=== PATIENT | female | born 1945 | race Caucasian/White ===

== ENCOUNTER → 2021-08-09 | Outpatient (CLI) | payer MEDICARE ==
--- NOTE | 2021-08-12 12:41 | RAD ---
EXAM: XR FOOT_LEFT 3 VIEWS 08/09/2021 3:30 PM CLINICAL INDICATION: Foot pain COMPARISON: None TECHNIQUE: AP, oblique, and lateral views of the weightbearing FINDINGS: There is a minimally displaced, acute oblique fracture of the fifth metatarsal shaft and ne ck. No other fracture or malalignment. 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 Th ere are small plantar and posterior calcaneal enthesophytes. No focal soft tissue abnormality. IMPRESSION: 1. Acute minimally displaced fifth metatarsal fracture. 2. 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 3. Calcaneal enthesophytes. Electronically signed by: Katty Todd MD (08/12/2021 12:39 PM) [id number]
== END ==
LOC: RAD 15:00
PROVIDERS: ATTEND Podiatrist
DX: S92.352A Displaced fracture of fifth metatarsal bone, left foot, initial encounter for closed fracture (principal); M19.072 Primary osteoarthritis, left ankle and foot; M77.32 Calcaneal spur, left foot; X58.XXXA Exposure to other specified factors, initial encounter; Y93.89 Activity, other specified; Y92.89 Other specified places as the place of occurrence of the external cause; Y99.8 Other external cause status
CPT/HCPCS: 73630

== ENCOUNTER → 2021-09-06 | Outpatient (CLI) | payer MEDICARE ==
--- NOTE | 2021-09-06 13:49 | RAD ---
EXAM: XR FOOT_LEFT 3 VIEWS 09/06/2021 1:33 PM CLINICAL INDICATION: Follow-up left foot fracture COMPARISON: Left foot radiograph 08/09/2021 TECHNIQUE: AP, oblique, and lateral views of the left foot with weightbearing FINDINGS: The mildly displaced oblique fracture of the fifth metatarsal shaft is unchanged in align ent. There has been no significant interval healing. Unchanged small osteophyte versus dorsal avulsio n fracture of the navicular. 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 Mild dorsal soft tissue swelling of the forefoot. IMPRESSION: 1. Unchanged fifth metatarsal fracture. 2. Unchanged small osteophyte versus dorsal avulsion fracture of the navicular. Electronically signed by: Katty Todd MD (09/06/2021 1:47 PM) [id number]
== END ==
LOC: RAD 13:07
PROVIDERS: ATTEND Podiatrist
DX: S92.352A Displaced fracture of fifth metatarsal bone, left foot, initial encounter for closed fracture (principal); M79.89 Other specified soft tissue disorders; M19.072 Primary osteoarthritis, left ankle and foot; X58.XXXA Exposure to other specified factors, initial encounter; Y93.89 Activity, other specified; Y92.89 Other specified places as the place of occurrence of the external cause; Y99.8 Other external cause status
CPT/HCPCS: 73630